=== PATIENT | female | born 1945 | race Caucasian/White ===

== ENCOUNTER → 2017-09-14 | Outpatient (CLI) | payer MEDICARE ==
--- NOTE | 2017-09-15 15:52 | RAD ---
DATE: 09/14/2017 EXAM: MAMMO CRISTAL SCREENING BILATERAL Bilateral Screening Digital 2D and 3D Mammogram HISTORY: Screening Mammogram COMPARISON: Screening mammogram 10/02/2015 10/12/2013 This study was interpreted with the benefit of Computerized Aided Detection (CAD). The breast parenchyma shows scattered fibroglandular densities. Breast parenchyma level B. FINDINGS: Bilateral digital 2-D and 3-D tomosynthesis CC and MLO views. No suspicious mass, calcification or architectural distortion. No significant change from prior examination IMPRESSION: No mammographic evidence of malignancy. Recommend routine screening mammogram in 12 months. BI-RADS CATEGORY: 1 NEGATIVE RECOMMENDED FOLLOW-UP: 12M 12 MONTH FOLLOW-UP PQRS compliance statement: Patient information was entered into a reminder system with a target due date for the next mammogram. Mammography is a sensitive method for finding small breast cancers, but it does not detect them all and is not a substitute for careful clinical examination. A negative mammogram does not negate a clinically suspicious finding and should not result in delay in biopsying a clinically suspicious abnormality. "Our facility is accredited by the [employer] Mammography Program."
== END | disposition home or self-care (01) ==
LOC: MAMMO 11:13
PROVIDERS: ATTEND Nurse Practitioner
DX: Z12.31 Encounter for screening mammogram for malignant neoplasm of breast (principal)
CPT/HCPCS: 77063; G0202; 77067

== ENCOUNTER → 2018-08-26 | Outpatient (CLI) | payer MEDICARE ==
[~2018-08-26] MED LIST: IOHEXOL 240 MG/ML 50ML VIAL. ONE; IOHEXOL 300 MG/ML 75 ML VIAL. IV ONE
[2018-08-26 10:41] LABS: GFR 54.7
--- NOTE | 2018-08-26 16:47 | RAD ---
CT of the abdomen with contrast, 08/26/2018: HISTORY: Possible right-sided mass Multidetector CT imaging was performed following oral and IV administration of contrast. There is mild linear scarring and/or atelectasis in the lung bases. No hepatic abnormality is identified. The gallbladder shows no abnormality. There is no evidence of a pancreatic mass. The spleen is of normal size. 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 There are mild bilateral renal scars. There is no evidence of hydronephrosis or a renal mass. No adrenal abnormality is detected. Moderate aortic calcific plaquing is present without evidence of aneurysm. No abdominal adenopathy is seen. The bowel loops are not dilated. There appears to be a small hiatal hernia. No free fluid or free air is evident in the abdomen. There are mild scattered degenerative changes in the spine. IMPRESSION: No acute abdominal abnormality is detected. PQRS Compliance Statement: One or more of the following individualized dose reduction techniques were utilized for this examination: 1. Automated exposure control 2. Adjustment of the mA and/or kV according to patient size 3. Use of iterative reconstruction technique Electronically signed by: Maxwell Orta MD (08/26/2018 4:43 PM) [facility]
== END | disposition home or self-care (01) ==
LOC: CT 09:29
PROVIDERS: ATTEND General Practice
DX: R19.09 Other intra-abdominal and pelvic swelling, mass and lump (principal); I10 Essential (primary) hypertension
CPT/HCPCS: 36415; 74160; 82565; 84520; Q9966; Q9967

== ENCOUNTER → 2021-04-23 | Outpatient (CLI) | payer MEDICARE ==
[2021-04-23 11:28] LABS: BASO # 0.1 x10^3/uL (0.0-0.2); BASO % 1 % (0-3); EOS # 0.4 x10^3/uL (0.0-0.7); EOS % 3 % (0-3); HEMATOCRIT 39.5 % (36.0-47.0); HEMOGLOBIN 13.6 g/dL (12.0-15.5); LYMPH # 1.4 x10^3/uL (1.0-4.8); LYMPH % 13 % (24-48); MEAN CORPUSCULAR HEMOGLOBIN 32 pg (25-35); MEAN CORPUSCULAR HGB CONC 34 g/dL (31-37); MEAN CORPUSCULAR VOLUME 93 fL (79-100); MONO % 9 % (0-9); NEUT % 74 % (31-73); PLATELET COUNT 239 x10^3/uL (140-400); RED BLOOD COUNT 4.23 x10^6/uL (3.50-5.40); RED CELL DISTRIBUTION WIDTH 13.6 % (11.5-14.5); WHITE BLOOD COUNT 10.8 x10^3/uL (4.0-11.0)
[2021-04-23 11:41] LABS: ALBUMIN 4.2 g/dL (3.4-5.0); CALCIUM 10.1 mg/dL (8.5-10.1); CREATININE 1.1 mg/dL (0.6-1.0); GFR 48.7; POTASSIUM 4.6 mmol/L (3.5-5.1); TOTAL BILIRUBIN 0.5 mg/dL (0.2-1.0); TOTAL PROTEIN 8.4 g/dL (6.4-8.2)
[2021-04-23 12:46] LABS: SEDIMENTATION RATE 31 (0-25)
--- NOTE | 2021-04-23 12:56 | RAD ---
EXAM: CT Abdomen and Pelvis with IV contrast CLINICAL HISTORY: Reason: LOWER ABD PAIN, 60MLS OMNI 300 / Spl. Instructions: WAITING ON LAB - DRINKI NG @ 1047 / History: COMPARISON: 08/26/2018 TECHNIQUE: Helical CT of the abdomen and pelvis was performed following the administration of intrave nous contrast. Axial, coronal and sagittal reformatted images were generated. PQRS compliance statement - One or more of the following individualized dose reduction techniques wer e utilized for this study: 1. Automated exposure control 2. Adjustment of the mA and/or kV according to patient size 3. Use of iterative reconstruction technique FINDINGS: Lower Chest: Linear opacities in lower lobes and lingula likely scarring/atelectasis. Coronary calcifications are seen. Abdomen and Pelvis: High density material dependently within the gallbladder likely sludge. Hepatic hypoattenuation likel y fatty liver. Spleen, adrenal glands, pancreas are unremarkable. Subcentimeter hypodense right upper pole renal lesion is too small to accurately characterize. No hydronephrosis. There is infiltration about the sigmoid colon in the region of colonic diverticula. No abdominal or p elvic lymphadenopathy. No abdominal or pelvic ascites. Aortic calcifications are seen. Degenerative c hanges of spine are noted. Changes of ventral mesh hernia repair are seen. Bones: No aggressive osseous lesion is seen. IMPRESSION: 1. Changes of acute sigmoid diverticulitis without evidence for associated loculated fluid collectio n or free intraperitoneal gas. Colonoscopy is recommended following resolution of the acute process t o exclude underlying associated mass. 2. Moderate colonic stool content is seen. 3. No bowel obstruction. Electronically signed by: Jeremy Edouard MD (04/23/2021 12:54 PM) [id number]
[2021-04-23 14:03] LABS: BACTERIA,URINE FEW /HPF (0-FEW); BILIRUBIN,URINE NEG (NEG); CLARITY,URINE HAZY; COLOR,URINE YELLOW; GLUCOSE,URINE NEG (NEG); NITRITE,URINE NEG (NEG); RBC,URINE 0 /HPF (0-2); SQUAMOUS EPITHELIAL CELL,UR MOD /LPF; UROBILINOGEN,URINE 0.2 mg/dL (0.2 mg/dL)
== END ==
LOC: RAD 10:22
PROVIDERS: ATTEND Physician Assistant
DX: K57.32 Diverticulitis of large intestine without perforation or abscess without bleeding (principal); K57.90 Diverticulosis of intestine, part unspecified, without perforation or abscess without bleeding
CPT/HCPCS: 36415; 74177; 80053; 81001; 82150; 83690; 85025; 85651; 87086; Q9967

== ENCOUNTER 2021-05-19 10:45 | Emergency (ER) | payer MEDICARE ==
[~2021-05-19] VITALS: Ht 162.6 cm; Wt 102.9 kg
--- NOTE | 2021-05-19 12:33 | RAD ---
Right lower extremity venous Doppler ultrasound History: Reason: swelling, pain in knee Comparison: None. Procedure: Color flow Doppler, Doppler spectral analysis, and 2D images are obtained with and without compression in the area of the common femoral vein, superficial femoral vein - femoral vein junction , main femoral vein (superficial femoral vein) and popliteal vein. Veins of the proximal calf are als o imaged. Findings: There is normal color flow, augmentation, and compressibility of all visualized vein segments. No long dence of deep venous thrombus is present. IMPRESSION: No evidence of right lower extremity deep venous thrombosis. Electronically signed by: Juliocesar العراقي MD (05/19/2021 12:31 PM) [id number]
[2021-05-19 13:07] VITALS: BP 145/95
[2021-05-19] MEDS ORDERED: HYDR-2759 PO (13:13)
--- NOTE | 2021-05-19 13:15 | PHYS DOC ---
Past History Past Surgical History: Other Additional Past Surgical Histo: HERNIA, CARPAL TUNNEL X 2, D&C X 3 Alcohol Use: Occasionally General Adult EDM: Chief Complaint: LOWER EXT PAIN HPI: HPI: 75-year-old female presents with right leg pain. She is having shooting pain when she puts weight on the right leg. Seems to start at the knee but radiates both down and up. She believes the right leg is more swollen than the left. She is concerned about DVT. She denies shortness of breath, fever, chills, chest pain. No specific risk factors for DVT. No history of DVT. Review of Systems: Review of Systems: Constitutional: Denies fever or chills Eyes: Denies change in visual acuity HENT: Denies nasal congestion or sore throat Respiratory: Denies cough or shortness of breath Cardiovascular: Denies chest pain or edema GI: Denies abdominal pain, nausea, vomiting, bloody stools or diarrhea : Denies dysuria Musculoskeletal: Right leg pain Integument: Denies rash Neurologic: Denies headache, focal weakness or sensory changes Endocrine: Denies polyuria or polydipsia Lymphatic: Denies swollen glands Psychiatric: Denies depression or anxiety Allergies: Allergies: Allergies Coded Allergies Type Severity Reaction Last Updated Verified No Known Drug Allergies 08/26/18 No Physical Exam: PE: Constitutional: Well developed, well nourished, morbidly obese, no acute distress, non-toxic appearance. [] HENT: Normocephalic, atraumatic, bilateral external ears normal, oropharynx moist, no oral exudates, nose normal. [] Eyes: PERRLA, EOMI, conjunctiva normal, no discharge. [] Neck: Normal range of motion, no tenderness, supple, no stridor. [] Cardiovascular: Heart rate regular rhythm, no murmur [] Lungs & Thorax: Bilateral breath sounds clear to auscultation [] Abdomen: Bowel sounds normal, soft, no tenderness, no masses, no pulsatile masses. [] Skin: Warm, dry, no erythema, no rash. [] Back: No tenderness, no CVA tenderness. [] Extremities: No tenderness, no cyanosis, no clubbing, no edema. Right lower extremity slightly greater diameter than left. [] Neurologic: Alert and oriented X 3, normal motor function, normal sensory function, no focal deficits noted. [] Psychologic: Affect normal, judgement normal, mood normal. [] Current Patient Data: Vital Signs: Vital Signs Date Time Temp Pulse Resp B/P (MAP) Pulse Ox O2 Delivery O2 Flow Rate FiO2 05/19/21 11:05 98.1 85 20 157/67 94 Room Air EKG: EKG: [] Radiology/Procedures: Radiology/Procedures: [] Impressions: Right lower extremity venous Doppler ultrasound History: Reason: swelling, pain in knee Comparison: None. Procedure: Color flow Doppler, Doppler spectral analysis, and 2D images are obtained with and without compression in the area of the common femoral vein, superficial femoral vein - femoral vein junction, main femoral vein (superficial femoral vein) and popliteal vein. Veins of the proximal calf are also imaged. Findings: There is normal color flow, augmentation, and compressibility of all visualized vein segments. No evidence of deep venous thrombus is present. IMPRESSION: No evidence of right lower extremity deep venous thrombosis. Electronically signed by: Juliocesar Kilpatrick MD (05/19/2021 12:31 PM) [id number] DICTATED AND SIGNED BY: JULIOCESAR KILPATRICK MD DATE: 05/19/21 1229 CC: EILEEN BLOUNT DO; TEJAL GOOD PA ~MTH0 0 Heart Score: C/O Chest Pain: N/A Risk Factors: Risk Factors: DM, Current or recent (<one month) smoker, HTN, HLP, family history of CAD, obesity. Risk Scores: Score 0 - 3: 2.5% MACE over next 6 weeks - Discharge Home Score 4 - 6: 20.3% MACE over next 6 weeks - Admit for Clinical Observation Score 7 - 10: 72.7% MACE over next 6 weeks - Early Invasive Strategies Course & Med Decision Making: Course & Med Decision Making Pertinent Labs and Imaging studies reviewed. (See chart for details) The patient's ultrasound was negative for DVT. Not sure what is causing the patient's pain. It could be swelling in the joint. I have advised that she consider following up with orthopedics. I will discharge her with a short course of [place] 5/325. She is stable for discharge at this time. [] Dragon Disclaimer: Dragon Disclaimer: This electronic medical record was generated, in whole or in part, using a voice recognition dictation system. Departure Departure: Impression: Primary Impression: Right knee pain Qualified Codes: M25.561 - Pain in right knee Disposition: 01 HOME / SELF CARE / HOMELESS Condition: STABLE Referrals: TEJAL GOOD (PCP) Patient Instructions: Knee Pain, [id number] Scripts Hydrocodone/Acetaminophen (Hydrocodone-Acetamin 5-325 mg) 1 Each Tablet 1 EACH PO Q4-6HRS PRN for PAIN, #10 TAB Prov: EILEEN BLOUNT DO 05/19/21 EILEEN BLOUNT DO May 19, 2021 13:15
== END 2021-05-19 13:25 | disposition home or self-care (01) ==
LOC: ER 10:45
DX: M25.561 Pain in right knee (principal); R22.41 Localized swelling, mass and lump, right lower limb; E66.01 Morbid (severe) obesity due to excess calories; Z68.45 Body mass index [BMI] 70 or greater, adult
CPT/HCPCS: 93971; 99284

== ENCOUNTER → 2021-05-23 | Outpatient (CLI) | payer MEDICARE ==
[2021-05-19 13:07] VITALS: BP 145/95
[~2021-05-23] MED LIST changes: +HYDR-2759 PO; -IOHEXOL 240 MG/ML 50ML VIAL. ONE; -IOHEXOL 300 MG/ML 75 ML VIAL. IV ONE
--- NOTE | 2021-05-25 08:20 | RAD ---
Three-view right knee radiographs 05/23/2021 CLINICAL HISTORY: Right knee pain. AP, lateral and oblique digital radiographs of the right knee were obtained. No fracture or dislocati on right knee is seen. Mild degenerative changes are seen involving all 3 compartment right knee. The re is no radiographic evidence of a joint effusion. IMPRESSION: Mild degenerative changes are seen involving the right knee. No acute osseous abnormality is seen. Electronically signed by: Avel Virk MD (05/25/2021 8:18 AM) [id number]
== END ==
LOC: RAD 12:20
PROVIDERS: ATTEND Physician Assistant
DX: M17.11 Unilateral primary osteoarthritis, right knee (principal)
CPT/HCPCS: 73562

== ENCOUNTER → 2021-07-03 | Outpatient (CLI) | payer MEDICARE ==
--- NOTE | 2021-07-04 09:38 | RAD ---
INDICATION: 76 years of age asymptomatic female patient presents for screening mammography. TECHNIQUE: Full field craniocaudal and mediolateral oblique images of both breasts were obtained usi ng digital technique with tomosynthesis and also analyzed with computer-aided detection software. COMPARISON: Prior mammographic imaging 09/14/2017 BREAST COMPOSITION: Category B: There are scattered fibroglandular densities. FINDINGS: There is a new focal asymmetry in the medial, superior left breast approximately 3 cm from the nipple . No suspicious left breast microcalcification or architectural distortion. No suspicious masses, microcalcifications or architectural distortion is present to suggest malignanc y in the right breast. Benign type calcifications are seen bilaterally. The visualized axillae are unremarkable. IMPRESSION: Left breast focal asymmetry, findings for which additional imaging is advised. Additional imaging to include spot compression views and ultrasound. RECOMMENDATION: The patient will be contacted to return for additional imaging and a supplemental rep ort will follow. BIRADS 0: INCOMPLETE - NEED ADDITIONAL IMAGING EVALUATION AND/OR PRIOR MAMMOGRAMS FOR COMPARISON. This study was interpreted with the benefit of Computerized Aided Detection (CAD). Patient information is entered into the reminder system with a target due date for the next screening mammogram. Mammography is the most sensitive method for finding small breast cancers, but it does not detect the m all and is not a substitute for careful clinical examination. A negative mammogram does not negate a clinically suspicious finding and should not result in delay in biopsying a clinically suspicious a bnormality. "Our facility is accredited by the [employer] Mammography Program." Electronically signed by: Jeremy Edouard MD (07/04/2021 9:35 AM) [id number]
== END ==
LOC: MAMMO 09:56
PROVIDERS: ATTEND Physician Assistant
DX: Z12.31 Encounter for screening mammogram for malignant neoplasm of breast (principal)
CPT/HCPCS: 77063; 77067

== ENCOUNTER → 2021-07-18 | Outpatient (CLI) | payer MEDICARE ==
[~2021-07-18] MED LIST changes: +ASCO1TAB2 PO; +LOSA50TA86 PO; +MAGN500C10 PO; +MV-M1TAB66 PO; +SIMV20TA18 PO; +TUME1CAP PO
--- NOTE | 2021-07-18 14:56 | RAD ---
EXAM: Left breast diagnostic mammogram; left breast sonogram. HISTORY: 76-year-old female presents for evaluation of asymmetry within the left breast demonstrated on a screening mammogram dated 07/03/2021. TECHNIQUE: Full-field digital and spot compression views of left breast are obtained. Sonographic lili ging of the left breast was also performed. COMPARISON: 07/03/2021 and 09/14/2017 BREAST PARENCHYMAL DENSITY: Level B - Scattered fibroglandular densities. FINDINGS: There is a persistent nodular density within the superficial anterior 10:00 position of the left breast. There is no architectural distortion or suspicious calcification or dislocation. Sonographic imaging of the left breast demonstrates a focal hypoechoic lesion with internal echogenic foci and surrounding hyperechoic rim within the superficial soft tissues at the 10:00 position 4 cm from the nipple measuring 2.0 cm in maximum dimension. This corresponds with the mammographic finding of concern. This demonstrates no internal blood flow or posterior shadowing. There is ecchymosis inv olving the skin overlying this location. IMPRESSION: 1. 2.0 cm heterogeneous hypoechoic lesion with hyperechoic rim and internal echogenic foci within the superficial soft tissues of the left breast at the 10:00 position 4 cm from the nipple. The location of this lesion, sonographic appearance, and presence ecchymosis involving the skin overlying this lo cation favors a soft tissue hematoma rather than mass. Short-term follow-up with a left breast sonogr am in one month is recommended. If this lesion persists or is not significantly improved, sonographic guided biopsy will be indicated. 2. BI-RADS Category 3: Probably benign finding(s). Short term follow up with a left breast sonogram i n one month is recommended. If your mammogram demonstrates that you have dense breast tissue, which could hide abnormalities, and if you have other risk factors for breast cancer that have been identified, you might benefit from s upplemental screening tests that may be suggested by your ordering physician. Dense breast tissue, i n and of itself, is a relatively common condition. This information is not provided to cause undue c oncern, but rather to raise your awareness and to promote discussion with your physician regarding th e presence of other risk factors, in addition to dense breast tissue. A report of your mammography re sults will be sent to you and your physician. You should contact your physician if you have any ques tions or concerns regarding this report. Mammography is a sensitive method for finding small breast cancers, but it does not detect them all a nd is not a substitute for careful clinical examination. A negative mammogram does not negate a clin ically suspicious finding and should not result in delay in biopsying a clinically suspicious abnorma lity. PQRS compliance statement - Patient information was entered into a reminder system with a target due date for the next mammogram. "Our facility is accredited by the [employer] Mammography Program." Electronically signed by: Carol Bales MD (07/18/2021 2:53 PM) [id number]
== END ==
LOC: MAMMO 15:36
DX: N64.89 Other specified disorders of breast (principal)
CPT/HCPCS: 76642; 77065

== ENCOUNTER → 2021-07-22 | Outpatient (CLI) | payer MEDICARE | LOC: LAB 15:25 | PROVIDERS: ATTEND Internal Medicine Gastroenterology | DX: Z01.812 Encounter for preprocedural laboratory examination (principal); Z12.11 Encounter for screening for malignant neoplasm of colon; Z20.822 Contact with and (suspected) exposure to COVID-19 | CPT/HCPCS: U0003 ==

== ENCOUNTER → 2021-07-25 | Day surgery (SDC) | payer MEDICARE ==
[~2021-07-25] MED LIST changes: +IPRATRPIUM/ALBUTEROL 0.5/2.5MG 3 ML NEBU. NEB PRN; +IV RINGERS SOLUTION,LACTATED 1,000 ML IV SCH; +LIDOCAINE 2% PF 5 ML VIAL. ONE; +MIDAZOLAM HCL PF 2 MG/2 ML VIAL. IV ONE; +ONDANSETRON PF 4 MG/2 ML VIAL. IV PRN; +PROPOFOL 10,000 MCG/ML (20ML) VIAL IV ONE
[2021-07-25 12:24] VITALS: BP 154/74
== END | disposition home or self-care (01) ==
LOC: SURG 10:38
PROVIDERS: ATTEND Internal Medicine Gastroenterology
DX: R19.4 Change in bowel habit (principal); K57.30 Diverticulosis of large intestine without perforation or abscess without bleeding; K64.8 Other hemorrhoids; K63.89 Other specified diseases of intestine; I10 Essential (primary) hypertension; Z87.891 Personal history of nicotine dependence; Z79.899 Other long term (current) drug therapy; Z98.890 Other specified postprocedural states; Z86.010 Personal history of colon polyps; Z80.0 Family history of malignant neoplasm of digestive organs
CPT/HCPCS: 45378; J2001; J2704; J7120; G0105

== ENCOUNTER → 2021-08-19 | Outpatient (CLI) | payer MEDICARE ==
[2021-07-25 12:24] VITALS: BP 154/74
[~2021-08-19] MED LIST changes: -IPRATRPIUM/ALBUTEROL 0.5/2.5MG 3 ML NEBU. NEB PRN; -IV RINGERS SOLUTION,LACTATED 1,000 ML IV SCH; -LIDOCAINE 2% PF 5 ML VIAL. ONE; -MIDAZOLAM HCL PF 2 MG/2 ML VIAL. IV ONE; -ONDANSETRON PF 4 MG/2 ML VIAL. IV PRN; -PROPOFOL 10,000 MCG/ML (20ML) VIAL IV ONE
--- NOTE | 2021-08-20 14:45 | CARD ---
MR#: [id number] Date of Study: 08/19/2021 Ordering Physician: ALFREDO HAN, Referring Physician: ALFREDO HAN, Tech: Beatriz Dalbetotristen [facility] APPROVED REPORT EXAM: Two-dimensional and M-mode echocardiogram with Doppler and color Doppler. Other Information Quality : AverageHR: 77bpm INDICATION Hypertension/HCVD RISK FACTORS Hyperlipidemia 2D DIMENSIONS Left Atrium(2D)3.7 (1.6-4.0cm)IVSd1.2 (0.7-1.1cm) Aortic Root(2D)3.3 (2.0-3.7cm)LVDd4.7 (3.9-5.9cm) LVOT Diameter2.1 (1.8-2.4cm)PWd1.0 (0.7-1.1cm) LVDs2.9 (2.5-4.0cm)FS (%) 37.9 % SV68.6 ml Aortic Valve AoV Peak Hakan.169.0cm/sAoV VTI42.6cm AO Peak GR.11.4mmHgLVOT Peak Hakan.90.1cm/s LVOT VTI 24.98cmAO Mean GR.6mmHg LI (VMAX)1.98rg5AYS (VTI)1.99cm2 Mitral Valve MV E Hdqoixjo78.5cm/sMV E Peak Gr.5mmHg MV DECEL [id number] A Nboojcjh237.7cm/s MV E Mean Gr.2mmHgE/A Ratio0.8 Pulmonary Valve PV Peak Wbovkugi88.8cm/sPV Peak Grad.3mmHg Tricuspid Valve TR P. Mvhhnaqo770hd/sRAP VXQXADAT0idDb TR Peak Gr.27stFyKMKJ46oeYt LEFT VENTRICLE The left ventricle is normal size. There is mild concentric left ventricular hypertrophy. The left ve ntricular systolic function is normal and the ejection fraction is within normal range. The Ejection Fraction is 55-60%. There is normal LV segmental wall motion. Transmitral Doppler flow pattern is Gra de I-abnormal relaxation pattern. RIGHT VENTRICLE The right ventricle is normal size. There is normal right ventricular wall thickness. The right ventr icular systolic function is normal. ATRIA The left atrium size is normal. The right atrium size is normal. The interatrial septum is intact wit h no evidence for an atrial septal defect or patent foramen ovale as noted on 2-D or Doppler imaging. AORTIC VALVE The aortic valve is normal in structure and function. Doppler and Color Flow revealed no significant aortic regurgitation. There is no significant aortic valvular stenosis. Calculated aortic valve area is 2.3 cm2 with maximum pressure gradient of 12 mmHg and mean pressure gradient of 7 mmHg. MITRAL VALVE The mitral valve is normal in structure and function. There is no evidence of mitral valve prolapse. There is no mitral valve stenosis. Doppler and Color-flow revealed trace mitral regurgitation. TRICUSPID VALVE The tricuspid valve is normal in structure and function. Doppler and Color Flow revealed trace tricus pid regurgitation. There is no tricuspid valve stenosis. PULMONIC VALVE The pulmonic valve is not well visualized. Doppler and Color Flow revealed trace pulmonic valvular re gurgitation. GREAT VESSELS The aortic root is normal in size. The IVC is normal in size and collapses >50% with inspiration. PERICARDIAL EFFUSION There is no evidence of significant pericardial effusion. Critical Notification Critical Value: No <Conclusion> The left ventricle is normal size. The left ventricular systolic function is normal and the ejection fraction is within normal range. The Ejection Fraction is 55-60%. There is mild concentric left ventricular hypertrophy. Doppler and Color Flow revealed no significant aortic regurgitation. There is no significant aortic valvular stenosis. Doppler and Color-flow revealed trace mitral regurgitation. Doppler and Color Flow revealed trace tricuspid regurgitation. Signed by : Elieser Love MD Electronically Approved : 08/20/2021 14:45:23
--- NOTE | 2021-08-21 16:42 | RAD ---
MR#: [id number] Date of Study: 08/19/2021 Ordering Physician: ALFREDO HAN, Referring Physician: ALFREDO HAN Tech: Angie Barrera RVT, [facility] APPROVED REPORT Patient Location : OUT-PATIENT Indications Lower Extremity Edema : Past History Compression Stockings : Greater Saphenous Veins (GSV) Significant venous relux noted in the RIGHT GSV at the following levels : Superficial Femoral Junctio n, Proximal Thigh, Mid Thigh Significant venous relux noted in the LEFT GSV at the following levels : Superficial Femoral Junction , Proximal Thigh, Mid Thigh, Distal Thigh, Proximal Calf, Mid Calf, Distal Calf Critical Notification Critical Value: No <Conclusion> FINDINGS Grayscale images of bilateral saphenofemoral junctions are unremarkable without any evidence of throm bus. Patient was found to have a Mccord's cyst in the right popliteal fossa measuring 4.4 cm x 3.8 cm x 2.0 cm. Spectral waveform analysis and color duplex imaging was performed superficial veins both lower extrem ities. The right greater saphenous vein measured 5 mm at the saphenofemoral junction and showed a re flux of 0.9 seconds. The mid and distal segments showed reflux of 2.4 and 2.6 seconds respectively. The left greater saphenous vein measured 10 mm at the saphenofemoral junction and showed reflux of 2 .6 seconds. The mid and distal segments showed reflux of 5.5 and 1.0 seconds respectively. The less er saphenous veins bilaterally with small caliber vessels and could not be imaged well for reflux. CONCLUSIONS Significant venous insufficiency noted bilateral greater saphenous veins. Incidental finding of Mccord's cyst in the right popliteal fossa Signed by : Aflredo Han, Electronically Approved : 08/21/2021 16:42:18
== END ==
LOC: ECHO 12:43
PROVIDERS: ATTEND Internal Medicine Cardiovascular Disease
DX: I51.7 Cardiomegaly (principal); I10 Essential (primary) hypertension; I87.2 Venous insufficiency (chronic) (peripheral); Z86.79 Personal history of other diseases of the circulatory system
CPT/HCPCS: 93306; 93970

== ENCOUNTER → 2021-08-21 | Outpatient (CLI) | payer MEDICARE ==
[2021-07-25 12:24] VITALS: BP 154/74
--- NOTE | 2021-08-21 13:40 | RAD ---
US BREAST LTD LT History:Reason: LT BREAST F/U / Spl. Instructions: / History: Patient reports decreased overlying br uising and the finding is no longer palpable. Comparison: Ultrasound July 18, 2021. Mammogram July 18, 2021, July 03, 2021 and Novemb er 2016. Technique: Sonographic examination of the left breast was performed and multiple static images were obtained. Findings: Decreased size of left breast heterogeneous lesion with surrounding hyperechogenicity at the 10:00 po sition 4 cm from the nipple. The lesion measures 0.7 x 1.0 x 0.3 cm compared to 2.0 x 1.8 x 0.8 cm. Impression: 1. Decreased size of left breast heterogeneous lesion, most likely resolving hematoma. Recommend con tinued clinical follow-up and imaging follow-up if interval growth. BI-RADS Category 2: Benign. Recommend return to annual screening. Electronically signed by: Deven Beltran DO (08/21/2021 1:38 PM) [id number]
== END ==
LOC: US 12:59
DX: N64.89 Other specified disorders of breast (principal)
CPT/HCPCS: 76642

== ENCOUNTER → 2021-11-19 | Outpatient (CLI) | payer MEDICARE ==
[2021-07-25 12:24] VITALS: BP 154/74
--- NOTE | 2021-11-19 20:30 | RAD ---
MR#: [id number] Date of Study: 11/19/2021 Ordering Physician: ALFREDO HAN, Referring Physician: ALFREDO HAN, Tech: Angie Barrera RVT, [facility] APPROVED REPORT Bilateral Lower Extremity Venous Study for DVT Patient Location: OUT-PATIENT Indications Recent bilateral GSV Venaseal The bilateral lower extremity deep veins were evaluated for thrombus with color Doppler, spectral and grayscale images. On the right the grayscale images of the common femoral, superficial femoral and popliteal veins do n ot demonstrate any evidence of thrombus and these veins appear to be compressible. The below-knee vei ns were not well visualized but grossly appear to be compressible. Spectral imaging and color Doppler do not reveal any evidence of obstruction to flow with normal respirophasic variation above the knee . Below the knee there is spontaneous flow noted. On the left, the grayscale images of the common femoral, superficial femoral and popliteal veins do n ot demonstrate any evidence of thrombus and these veins appear to be compressible. The below-knee vei ns again were not well visualized but grossly appear to be compressible. Spectral imaging and color D oppler do not reveal any evidence of obstruction to flow with normal respirophasic variation above th e knee. The below-knee veins demonstrate spontaneous flow. Bilateral greater saphenous veins contain thrombus consistent with recent ablation. Vein Imaging (Right) CFV (R): Compressible SFJ (R): Compressible FEM (R): Compressible POP (R): Compressible DFV (R): Compressible PTV (R): Compressible GSV (R): Partially Compressible Peroneals (R): Compressible Vein Imaging (Left) CFV (L): Compressible SFJ (L): Compressible FEM (L): Compressible POP (L): Compressible DFV (L): Compressible PTV (L): Compressible GSV (L): Partially Compressible Peroneals (L): Compressible Critical Notification Critical Value: No <Conclusion> 1. Successful bilateral greater saphenous vein ablation 2. No evidence of DVT. Signed by : Tevin Sanchez, Electronically Approved : 11/19/2021 20:30:25
== END ==
LOC: US 08:00
PROVIDERS: ATTEND Internal Medicine Cardiovascular Disease
DX: I87.2 Venous insufficiency (chronic) (peripheral) (principal); I87.323 Chronic venous hypertension (idiopathic) with inflammation of bilateral lower extremity
CPT/HCPCS: 93970